=== PATIENT | female | born 1960 | race Caucasian/White ===

== ENCOUNTER 2024-04-06 05:40 | Day surgery (SDC) | payer MEDICARE ==
[2024-04-05 08:37] VITALS: BMI 35.7
[2024-04-06] MEDS ORDERED: Ondansetron PF 4 MG/2 ML Vial ONE (06:38)
[2024-04-06] MEDS ORDERED: SUGAMMADEX SODIUM 200 MG/2 ML VIAL ONE (06:38)
[2024-04-06] MEDS ORDERED: Dexamethasone 20 MG/5 ML VIAL ONE (06:38)
[2024-04-06] MEDS ORDERED: fentaNYL 50 mcg/mL 1 mL Vial ONE (06:38)
[2024-04-06] MEDS ORDERED: Dexmedetomidine 200 MCG/2 ML VIAL ONE (06:38)
[2024-04-06] MEDS ORDERED: Midazolam HCl 2 mg/2 ml Vial ONE (06:38)
[2024-04-06] MEDS ORDERED: Rocuronium Bromide 10 MG/ML (10ML VIAL) ONE (06:38)
[2024-04-06] MEDS ORDERED: Sevoflurane 250 ML INH ANEST BOTTLE ONE (06:43)
[2024-04-06] MEDS ORDERED: Lidocaine 4% Topical Sol 50 ML BOT ONE (06:43)
[2024-04-06 07:42] LABS: Hematocrit 32.9 % (34.9-44.5); Hemoglobin 10.7 g/dL (12.0-15.5)
[2024-04-06 07:51] LABS: Anion Gap 14 mmol/L (10-20); BUN (Urea Nitrogen) 12 mg/dL (9.8-20.1); Calc. Creatinine Clearance 91 mL/min (70-130); Calcium 9.2 mg/dL (7.8-10.44); Carbon Dioxide 26 mmol/L (23-31); Chloride 105 mmol/L (98-107); Estimated GFR 72; Glucose 82 mg/dL (80-115); Potassium 3.7 mmol/L (3.5-5.1); Sodium 141 mmol/L (136-145)
[2024-04-06] MEDS ORDERED: PROPOFOL 20 ML ONE (07:52)
[2024-04-06] MEDS ORDERED: CEFAZOLIN 2 GM VIAL ONE (08:13)
[2024-04-06] MEDS ORDERED: ePHEDrine Sulfate 50 MG/10 ML VIAL ONE (08:31)
[2024-04-06] MEDS ORDERED: Glycopyrrolate 0.2 MG/ML 5 ML SYRINGE ONE (08:37)
[2024-04-06] MEDS ORDERED: PHENYLEPHRINE-NS 100 MCG/ML 10 ML SYRINGE ONE (08:43)
[2024-04-06] MEDS ORDERED: Scopolamine 1 mg/72 hour Patch ONE (09:01)
[2024-04-06] MEDS ORDERED: Famotidine/PF 20 mg/2ml Vial ONE (09:01)
[2024-04-06] MEDS ORDERED: Mupirocin 2% Ointment 22 GM Tube ONE (09:18)
[2024-04-06] MEDS ORDERED: Acetaminophen 500 MG TAB ONE (11:02)
== END 2024-04-06 11:32 | disposition home or self-care (01) ==
LOC: CSHSDC 05:40
PROVIDERS: ATTEND Otolaryngology Plastic Surgery within the Head & Neck
PROC: F0BZ09Z Cochlear Implant Rehabilitation Treatment using Cochlear Implant Equipment (ICD-10-PCS; principal; 2024-04-06)
DX: H90.A21 Sensorineural hearing loss, unilateral, right ear, with restricted hearing on the contralateral side (principal); K21.9 Gastro-esophageal reflux disease without esophagitis; I10 Essential (primary) hypertension; E03.9 Hypothyroidism, unspecified; E78.5 Hyperlipidemia, unspecified; Z79.899 Other long term (current) drug therapy; Z96.9 Presence of functional implant, unspecified; Z79.01 Long term (current) use of anticoagulants; Z98.890 Other specified postprocedural states; Z79.82 Long term (current) use of aspirin; Z79.890 Hormone replacement therapy
CPT/HCPCS: 20670; 69930; 80048; 85014; 85018; J1100; J2250; J2405; J2704; J3010; J3490; 36415; 88300